=== PATIENT | female | born 1950 | race Caucasian/White ===

== ENCOUNTER → 2016-10-04 16:58 | Outpatient (CLI) | payer BC ==
[2012-04-12 11:13] VITALS: BMI 23.7
== END | disposition home or self-care (01) ==
LOC: D.MAMMO 10:30
DX: Z85.3 Personal history of malignant neoplasm of breast (principal)

== ENCOUNTER → 2017-09-25 17:34 | Outpatient (CLI) | payer MEDICARE ==
[2012-04-12 11:13] VITALS: BMI 23.7
== END | disposition home or self-care (01) ==
LOC: D.MAMMO 08-27 09:30
DX: C50.819 Malignant neoplasm of overlapping sites of unspecified female breast (principal)

== ENCOUNTER 2018-09-29 08:00 | Outpatient (CLI) | payer MEDICARE ==
[2012-04-12 11:13] VITALS: BMI 23.7
== END 2018-09-29 09:00 | disposition home or self-care (01) ==
LOC: D.MAMMO 08:00
DX: Z12.31 Encounter for screening mammogram for malignant neoplasm of breast (principal)

== ENCOUNTER 2019-03-26 11:14 | Inpatient (IN) | payer MEDICARE, OTHER ==
[~2019-03-26] VITALS: Ht 160 cm; Wt 59.0 kg
--- NOTE | 2019-03-26 13:18 | NUR ---
RECEIVED PT FROM DR NELSON. BROUGHT BY WHEELCHAIR ACCOMPAINIED BY [facility]IS[facility] STAFF. ALERT AND ORIENTED. C/O ABDOMINAL PAIN. NO S/S OF ACUTE DISTRESS NOTED. CALL LIGHT IN REACH. WILL CONTINUE TO MONITOR.
[2019-03-26 13:25] VITALS: BP 143/64; Ht 160 cm; Wt 59.0 kg
[2019-03-26 13:36] LABS: BASOPHILS 0.9 % (0-2); HEMATOCRIT 32.5 % (36.0-48.0); HEMOGLOBIN 10.8 g/dL (12-16); IMMATURE GRANULOCYTES 0.3 % (0-5); MCH 28.4 pg (26.0-34.0); MCHC 33.2 g/dL (31.0-37.0); MCV 85.5 fL (80.0-100.0); MEAN PLATELET VOLUME 9.1 fL (7.4-10.4); NEUTROPHILS 79.8 % (40-80); RDW 14.9 % (11.5-14.5); WBC 6.8 10x3/uL (4.8-10.8)
[2019-03-26 13:37] LABS: PLATELET COUNT 398 10x3/uL (130-400)
[2019-03-26 13:51] LABS: ALBUMIN 3.5 g/dL (3.4-5.0); ANION GAP 13.7 mmol/L (8-16); BILIRUBIN - DIRECT 0.1 mg/dL (0.00-0.30); BILIRUBIN - TOTAL 0.3 mg/dL (0.2-1.3); CALCIUM 9.9 mg/dL (8.5-10.1); CARBON DIOXIDE 25.7 mmol/L (21.0-32.0); CREATININE - SERUM 1.4 mg/dL (0.6-1.3); POTASSIUM - SERUM 4.4 mmol/L (3.5-5.1); PROTEIN - SERUM 7.7 g/dL (6.4-8.2)
[2019-03-26 13:58] LABS: INR 1.11 (0.85-1.17); PROTIME 13.8 SECONDS (11.6-15.0)
[2019-03-26 13:59] LABS: APTT 27.1 SECONDS (22.8-39.4)
[2019-03-26 17:01] LABS: APPEARANCE CLEAR (CLEAR); BILIRUBIN NEGATIVE (NEGATIVE); COLOR STRAW (YELLOW); GLUCOSE NEGATIVE (NEGATIVE); KETONE NEGATIVE (NEGATIVE); NITRITE NEGATIVE (NEGATIVE); PROTEIN NEGATIVE (NEGATIVE); UROBILINOGEN NORMAL (NORMAL)
[2019-03-26 17:02] LABS: BACTERIA FEW /hpf (NONE SEEN); RED CELLS - URINE 0-5 /hpf (0-5); WHITE CELLS - URINE 0-5 /hpf (0-5)
[2019-03-26 17:23] VITALS: BP 138/70
--- NOTE | 2019-03-26 18:54 | NUR ---
ALERT AND ORIENTED. NO C/O PAIN. NO S/S OF ACUTE DISTRESS NOTED. CALL LIGHT IN REACH. WILL CONTINUE TO MONITOR.
--- NOTE | 2019-03-26 20:53 | NUR ---
RESTING QUEITLY WITH NO COMPLAITNS VOICED. RESP EVEN AND UNLABORED. NO DISTRESS NOTED. IV INFUSING TO LEFT WRIST WITHOUT REDNESS OR EDEMA NOTED. CL IN REACH
[2019-03-26 21:09] VITALS: BP 157/71
[2019-03-27] VITALS: BP 144/71
--- NOTE | 2019-03-27 03:59 | NUR ---
I have reviewed this patient and I concur with the Shift Assessment completed by the Licensed Practical Nurse today this shift.
[2019-03-27 04:00] VITALS: BP 152/77
[2019-03-27 04:08] LABS: BASOPHILS 1.2 % (0-2); EOSINOPHILS 2.7 % (0-7); HEMATOCRIT 30.1 % (36.0-48.0); IMMATURE GRANULOCYTES 0.4 % (0-5); LYMPHOCYTES 13.1 % (15-50); MCH 28.3 pg (26.0-34.0); MCHC 33.2 g/dL (31.0-37.0); MCV 85.3 fL (80.0-100.0); MEAN PLATELET VOLUME 8.8 fL (7.4-10.4); MONOCYTES 14.1 % (2-11); NEUTROPHILS 68.5 % (40-80); PLATELET COUNT 376 10x3/uL (130-400); RBC 3.53 10x6/uL (4.00-5.40); RDW 14.8 % (11.5-14.5); WBC 5.1 10x3/uL (4.8-10.8)
[2019-03-27 04:26] LABS: ALBUMIN 2.9 g/dL (3.4-5.0); ANION GAP 12.6 mmol/L (8-16); BILIRUBIN - TOTAL 0.35 mg/dL (0.2-1.3); CALCIUM 9.4 mg/dL (8.5-10.1); CARBON DIOXIDE 24.8 mmol/L (21.0-32.0); CREATININE - SERUM 1.2 mg/dL (0.6-1.3); POTASSIUM - SERUM 4.4 mmol/L (3.5-5.1); PROTEIN - SERUM 6.7 g/dL (6.4-8.2)
[2019-03-27] MEDS ORDERED: LISINOPRIL10 MG PO (05:38)
[2019-03-27 08:24] VITALS: BP 164/86
--- NOTE | 2019-03-27 09:00 | NUR ---
ALERT AND ORIENTED AMBULATING IN ROOM. CONTINUES NPO WITH NOO COMPLAINTS OF PAIN AT THIS TIME. ABDOMEN SOFT WITH TENDERNESS TO RUQ ANTERIOR WITH BS NOTED. ENCOURAGED TO USE CALL LIGHT FOR ASSIST.
--- NOTE | 2019-03-27 11:00 | NUR ---
PT PRE- OPPED AND LEFT FOR SURGERY. PT. STABLE AT THIS TIME.
[2019-03-27] MEDS ORDERED: HYDROCODON-ACE1 EAC7 PO (12:37)
[2019-03-27 13:13] VITALS: BP 138/67
[2019-03-27 16:00] VITALS: BP 138/76
[2019-03-27 16:45] VITALS: BP 125/55
--- NOTE | 2019-03-27 18:45 | NUR ---
IV DISCONTINUED AND VERBALIZED UNDERSTANDING OF DISCHARGE INSTRUCTIONS. STABLE AT TIME OF DEPARTURE WITH INCOSION SITES INTACT. LEFT VIA POV WITH ASSIST OF .
== END 2019-03-27 18:45 | disposition home or self-care (01) | DRG 419 ==
LOC: D.MS 11:14
PROVIDERS: Emergency Medicine; ADMIT Surgery; ATTEND Surgery
PROC: 0FT44ZZ Resection of Gallbladder, Percutaneous Endoscopic Approach (ICD-10-PCS; principal; 2019-03-27 12:30)
DX: K80.33 Calculus of bile duct with acute cholangitis with obstruction (principal); I10 Essential (primary) hypertension

== ENCOUNTER → 2019-10-22 18:36 | Outpatient (CLI) | payer MEDICARE, OTHER ==
[~2019-10-22 18:36] MED LIST: HYDROCODON-ACE1 EAC7 PO; LISINOPRIL10 MG PO
== END | disposition home or self-care (01) ==
LOC: D.MAMMO 15:00
PROVIDERS: ATTEND Internal Medicine Medical Oncology
DX: C50.819 Malignant neoplasm of overlapping sites of unspecified female breast (principal); C50.812 Malignant neoplasm of overlapping sites of left female breast; D50.9 Iron deficiency anemia, unspecified

== ENCOUNTER 2020-10-28 11:00 | Outpatient (CLI) | payer MEDICARE, OTHER | END 2020-10-28 23:59 | disposition home or self-care (01) | LOC: D.MAMMO 11:00 | PROVIDERS: ATTEND Clinical Nurse Specialist Family Health | DX: Z85.3 Personal history of malignant neoplasm of breast (principal) ==

== ENCOUNTER 2020-11-10 18:47 | Outpatient (CLI) | payer MEDICARE, OTHER | END 2020-11-10 23:59 | disposition home or self-care (01) | LOC: D.MAMMO 18:47 | PROVIDERS: ATTEND Clinical Nurse Specialist Family Health | DX: R92.2 Inconclusive mammogram (principal); N64.89 Other specified disorders of breast ==